=== PATIENT | female | born 1960 | race Caucasian/White ===

== ENCOUNTER 2018-04-10 10:32 | Emergency (ER) | payer BC, OTHER ==
--- NOTE | 2018-04-10 12:14 | RAD ---
RIGHT FOOT 3 VIEWS: HISTORY: A 57-year-old female with a history of injury to right foot with redness and swelling. FINDINGS: Minimal focal soft tissue swelling medial to the 1st metatarsophalangeal joint. Mild degenerative ch anges. No evidence for acute fracture or dislocation. IMPRESSION: Mild degenerative changes. Minimal medial soft tissue swelling at the 1st metatarsophalangeal joint. No acute fracture or dislocation or other acute process. POS: [facility]
== END 2018-04-10 11:40 | disposition home or self-care (01) ==
LOC: NAV ERS 10:32
DX: S93.601A Unspecified sprain of right foot, initial encounter (principal); X50.9XXA Other and unspecified overexertion or strenuous movements or postures, initial encounter